=== PATIENT | female | born 1965 | race Caucasian/White ===

== ENCOUNTER → 2017-09-11 | Day surgery (SDC) | payer OTHER ==
[~2017-09-11] MED LIST: ACETAMINOPHEN/HYDROcodone 325 MG/5 MG TAB ONE; BUPIVACAINE/EPINEPHRINE 0.5% PF 30 ML VIAL ONE; LACTATED RINGER'S 1000 ML INJ 1,000 ML ONE; MEPERIDINE HCL 50 MG/ML VIAL ONE; MIDAZOLAM HCL 2 MG/2 ML VIAL ONE; ONDANSETRON HCL 4 MG/2 ML VIAL IV PUSH ONE; PROPOFOL 200 MG/20 ML AMP IV ONE; ceFAZolin 2 GM PREMIX 50 ML ONE; metroNIDAZOLE 500 MG INJ 100 ML IV ONE
--- NOTE | 2017-09-11 11:39 | TN ---
cc: JF KAPLAN M.D. DATE OF SURGERY: 09/11/2017 PREOPERATIVE DIAGNOSIS 1. Chronic right upper quadrant postprandial abdominal pain. 2. Gallbladder polyp versus small stone. POSTOPERATIVE DIAGNOSIS 1. Chronic right upper quadrant postprandial abdominal pain. 2. Gallbladder polyp versus small stone. 3. Chronic cholecystitis. PROCEDURE PERFORMED Laparoscopic cholecystectomy. SURGEON Jf Kaplan. CORRESPONDENCE SPECIALIST YORDY Elias. ANESTHESIA General endotracheal. COMPLICATIONS None. INDICATION FOR PROCEDURE Ms. Lacey is a very pleasant 51-year-old female who has had about a three-year history of chronic right upper quadrant abdominal pain and bloating. This is mainly after she eats. The pain radiates from her right upper quadrant to her right back. She has had a very extensive GI work-up and the only abnormality noted was a small gallbladder polyp versus a stone seen on ultrasound. She was scheduled for HIDA scan but there was no CCK and therefore it was cancelled. She was seen and evaluated in the office. Based on her symptomatology I felt like the gallbladder was the most likely etiology of her pain. The risks and benefits of cholecystectomy was discussed with her in the office including the fact that it may or may not alleviate some or all of her symptoms. She was agreeable to proceed. DETAILS OF PROCEDURE The patient was identified, brought to the operating room and placed supine on the operating table. After adequate general endotracheal anesthesia was achieved the abdomen was prepped and draped in a standard surgical fashion. The infraumbilical space was anesthetized with 0.25% Marcaine. An infraumbilical incision was made. Dissection was carried down through subcutaneous tissue to the midline fascia. The midline fascia was then incised sharply. A finger was then placed in the peritoneal cavity without difficulty. A blunt balloon trocar was inserted and the abdomen was insufflated to 15 mmHg using CO2 gas. Next, two 5 mm trocars were placed in the right upper quadrant after anesthetizing the skin and subcutaneous tissue. Attention was directed to the right upper quadrant where the liver was identified. The omentum was completely encasing the gallbladder. The omentum was picked up and carefully dissected off the underside of the gallbladder using electrocautery Bovie. As we elevated the gallbladder up the duodenum and stomach were also stuck to the gallbladder and these were carefully taken down with sharp dissection. All this indicated chronic inflammation of the gallbladder making this the most likely cause of her right upper quadrant pain. Once the gallbladder was elevated cephalad the gallbladder neck was carefully dissected. The cystic artery and cystic duct were identified in two planes and they were then clipped twice proximally, once distally and then divided. The gallbladder was then dissected out of the hepatic fossa using electrocautery Bovie. The gallbladder was placed into an Endopouch bag and brought through the infraumbilical port. The gallbladder was inspected and found to contain no stones with clips in place on the cystic artery and cystic duct stump without any evidence of leakage of bile. The gallbladder was sent to pathology for analysis. The abdominal cavity was re-visualized. The liver bed was completely hemostatic. Clips were visualized on the cystic artery and cystic duct stump and there was no evidence of leakage of bile was no evidence of bleeding. 0.25% Marcaine was then injected into the operative field. All trocars were then removed under direct vision. The midline fascia was repaired with 0 Vicryl in [id number] fashion. The skin was closed with 4-0 Vicryl. The patient tolerated the procedure well, was awakened nd brought to Recovery in stable condition. Please note the TUBULAR SPLITTING MACHINE TENDER event sales assistant was medically necessary due to her specialized surgical skills and extensive knowledge of my surgical technique. MD ABIGAIL Rodriguez/MYA /11:17 AM /11:29 AM
== END | disposition home or self-care (01) ==
LOC: ESDC 08:39
PROVIDERS: ATTEND Surgery Trauma Surgery
DX: K81.1 Chronic cholecystitis (principal)
CPT/HCPCS: 00790; 47562; 88304; J0690; J2175; J2250; J2405; J3010; J7120